=== PATIENT | male | born 1955 | race Caucasian/White ===

== ENCOUNTER 2016-10-04 09:45 | Emergency (ER) | payer SELFPAY ==
[~2016-10-04] VITALS: Ht 180.3 cm; Wt 121.0 kg
[~2016-10-04 09:45] MED LIST: APRESOLINE50 MG PO; ASPIR-LOW81 MG PO; ASPIRIN325 MG PO; BRILINTA90 MG PO; ESSENTIAL ONE1 EACH PO; FENOFIBRATE145 M1 PO; FLEXERIL5 MG PO; HYDROCHLOROTHIA25 MG PO; LISINOPRIL20 MG PO; LOPRESSOR25 MG PO; MOTRIN600 MG PO; NITROSTAT0.4 MG SL; NORVASC5 MG PO; PRAVASTATIN SOD80 MG PO; ZANTAC150 MG PO; [UNRECOGNIZED DRUG - REMARK]
[2016-10-04 11:15] LABS: EOSINOPHIL (%) 1.2 % (0-5); EOSINOPHIL COUNT 0.1 K/uL (0-0.3); HEMATOCRIT 38.6 % (38.0-50.0); IMMATURE GRANULOCYTE (%) 0.5 % (0.0-0.7); IMMATURE GRANULOCYTE COUNT 0.1 K/uL; INSTRUMENT ABS NEUTROPHIL CT 7.8 K/uL; MCH 26.1 PG (29.0-34.0); MCHC 32.4 G/DL (30.0-36.0); MCV 80.6 FL (86-99); MEAN PLAT.VOLUME 9.5 uM^3 (9.0-12.4); MONOCYTE (%) 5.9 % (3-12); MONOCYTE COUNT 0.6 K/uL (0-0.8); NEUTROPHIL (%) 81.4 % (45-76); NEUTROPHIL COUNT 7.8 K/uL (1.8-6.4); PLATELET COUNT 188 K/uL (156-360); RBC DIS.WIDTH-CV 14.5 % (11.8-14.6); RBC DIS.WIDTH-SD 42.1 % (39-53); RED BLOOD COUNT 4.79 M/uL (4.00-5.50); WHITE BLOOD COUNT 9.5 K/uL (4.1-10.2)
[2016-10-04 11:29] LABS: CHLORIDE 105 mEq/L (99-109); POTASSIUM 3.7 mEq/L (3.7-5.4); SODIUM 138 mEq/L (136-147)
[2016-10-04 11:31] LABS: GLUCOSE 116 mg/dL (70-99)
[2016-10-04 11:32] LABS: ANION GAP 10 MEQ/L (2-14)
[2016-10-04 11:34] LABS: GFR ESTIMATE (CALCULATED) > 59 mL/min/
[2016-10-04 11:35] LABS: UREA NITROGEN (BUN) 17 mg/dL (9-23)
[2016-10-04] MEDS ORDERED: LISINOPRIL10 MG PO (13:33)
[2016-10-04] MEDS ORDERED: LEVAQUIN750 MG PO (13:33)
[2016-10-04 13:41] VITALS: BP 179/102
== END 2016-10-04 13:41 | disposition home or self-care (01) ==
LOC: EME 09:45
PROVIDERS: Emergency Medicine
DX: J18.9 Pneumonia, unspecified organism (principal); I10 Essential (primary) hypertension
CPT/HCPCS: 71020; 80048; 85025; 94640; 99281; 99284

== ENCOUNTER → 2017-05-01 | Outpatient (CLI) | payer SELFPAY ==
[~2017-05-01] MED LIST changes: +LEVAQUIN750 MG PO; +LISINOPRIL10 MG PO
== END | disposition home or self-care (01) ==
LOC: RAD 15:52
DX: R91.8 Other nonspecific abnormal finding of lung field (principal)
CPT/HCPCS: 71020

== ENCOUNTER 2017-09-10 18:14 | Inpatient (IN) | payer SELFPAY ==
[~2017-09-10] VITALS: Ht 180.3 cm; Wt 122.3 kg
[2017-09-10 18:44] LABS: HEMATOCRIT 39.6 % (38.0-50.0); HEMOGLOBIN 12.9 G/DL (12.5-16.6); MCH 26.1 PG (29.0-34.0); MCHC 32.6 G/DL (30.0-36.0); MCV 80.2 FL (86-99); PLATELET COUNT 176 K/uL (156-360); RBC DIS.WIDTH-CV 14.9 % (11.8-14.6); RBC DIS.WIDTH-SD 43.2 % (39-53); RED BLOOD COUNT 4.94 M/uL (4.00-5.50); WHITE BLOOD COUNT 6.8 K/uL (4.1-10.2)
[2017-09-10 18:57] LABS: CHLORIDE 108 mEq/L (99-109); POTASSIUM 4.2 mEq/L (3.7-5.4); SODIUM 142 mEq/L (136-147)
[2017-09-10 18:58] LABS: GLUCOSE 135 mg/dL (70-99)
[2017-09-10 19:02] LABS: CREATININE 1.2 mg/dL (0.6-1.3); GFR ESTIMATE (CALCULATED) > 59 mL/min/ (58.99-99999)
[2017-09-10 19:03] LABS: UREA NITROGEN (BUN) 16 mg/dL (9-23)
[2017-09-10 19:05] LABS: TROP-I INTERPRETATION POSITIVE
[2017-09-10 19:07] LABS: TROPONIN-I 0.84 ng/mL (0.0-0.30)
[2017-09-10 19:25] LABS: INTER. NORMALIZED RATIO 1.2
[2017-09-10 19:28] LABS: PTT 32.6 SEC (25-37)
[2017-09-10] MEDS ORDERED: CARDURA2 M1 PO (19:36)
[2017-09-10] MEDS ORDERED: COZAAR100 MG PO (19:38)
[2017-09-10] MEDS ORDERED: PLAVIX75 MG PO (19:39)
[2017-09-10] MEDS ORDERED: LOPRESSOR50 MG PO (19:39)
[2017-09-10] MEDS ORDERED: CRESTOR40 MG PO (19:40)
[2017-09-10] MEDS ORDERED: KLOR-CON 88 MEQ PO (19:41)
[2017-09-10] MEDS ORDERED: MELATONIN3 MG PO (19:43)
[2017-09-10] MEDS ORDERED: HYDROCHLOROTHIA25 MG PO (19:44)
[2017-09-10] MEDS ORDERED: LO-DOSE ASPIRIN81 M2 PO (19:45)
[2017-09-10 22:53] VITALS: BP 204/104
[2017-09-11] VITALS (9 sets, daily range): BP systolic 159–196; BP diastolic 70–91
[2017-09-11 02:11] LABS: BASOPHIL (%) 0.9 % (0-1); BASOPHIL COUNT 0.1 K/uL (0-0.1); EOSINOPHIL (%) 3.5 % (0-5); EOSINOPHIL COUNT 0.2 K/uL (0-0.3); HEMATOCRIT 37.7 % (38.0-50.0); HEMOGLOBIN 12.3 G/DL (12.5-16.6); IMMATURE GRANULOCYTE (%) 0.3 % (0.0-0.7); LYMPHOCYTE (%) 15.6 % (15-42); LYMPHOCYTE COUNT 0.9 K/uL (1.0-2.8); MCH 26.1 PG (29.0-34.0); MCHC 32.6 G/DL (30.0-36.0); MONOCYTE (%) 12.5 % (3-12); MONOCYTE COUNT 0.7 K/uL (0-0.8); NEUTROPHIL (%) 67.2 % (45-76); NEUTROPHIL COUNT 3.9 K/uL (1.8-6.4); PLATELET COUNT 159 K/uL (156-360); RBC DIS.WIDTH-CV 14.9 % (11.8-14.6); RBC DIS.WIDTH-SD 43.4 % (39-53); RED BLOOD COUNT 4.71 M/uL (4.00-5.50); WHITE BLOOD COUNT 5.8 K/uL (4.1-10.2)
[2017-09-11 02:25] LABS: CHLORIDE 106 mEq/L (99-109); SODIUM 141 mEq/L (136-147)
[2017-09-11 02:27] LABS: GLUCOSE 129 mg/dL (70-99)
[2017-09-11 02:30] LABS: CREATININE 1.2 mg/dL (0.6-1.3); GFR ESTIMATE (CALCULATED) > 59 mL/min/ (58.99-99999)
[2017-09-11 02:31] LABS: UREA NITROGEN (BUN) 15 mg/dL (9-23)
[2017-09-11 02:33] LABS: TROP-I INTERPRETATION POSITIVE
[2017-09-11 02:34] LABS: TROPONIN-I 9.01 ng/mL (0.0-0.30)
[2017-09-11 10:30] LABS: TROP-I INTERPRETATION POSITIVE; TROPONIN-I 6.14 ng/mL (0.0-0.30)
[2017-09-12] VITALS (7 sets, daily range): BP systolic 156–174; BP diastolic 73–80
[2017-09-12 05:40] LABS: BASOPHIL (%) 0.8 % (0-1); BASOPHIL COUNT 0.1 K/uL (0-0.1); EOSINOPHIL (%) 2.5 % (0-5); EOSINOPHIL COUNT 0.2 K/uL (0-0.3); HEMATOCRIT 39.8 % (38.0-50.0); HEMOGLOBIN 12.7 G/DL (12.5-16.6); IMMATURE GRANULOCYTE (%) 0.5 % (0.0-0.7); LYMPHOCYTE (%) 12.3 % (15-42); LYMPHOCYTE COUNT 0.8 K/uL (1.0-2.8); MCH 25.9 PG (29.0-34.0); MCHC 31.9 G/DL (30.0-36.0); MCV 81.1 FL (86-99); MONOCYTE COUNT 0.7 K/uL (0-0.8); NEUTROPHIL (%) 72.9 % (45-76); NEUTROPHIL COUNT 4.4 K/uL (1.8-6.4); PLATELET COUNT 171 K/uL (156-360); RBC DIS.WIDTH-CV 15.4 % (11.8-14.6); RBC DIS.WIDTH-SD 45.1 % (39-53); RED BLOOD COUNT 4.91 M/uL (4.00-5.50); WHITE BLOOD COUNT 6.1 K/uL (4.1-10.2)
[2017-09-12 06:11] LABS: CHLORIDE 104 MEQ/L (99-109); CREATININE 1.2 MG/DL (0.6-1.3); GFR ESTIMATE (CALCULATED) > 59 mL/min/ (58.99-99999); GLUCOSE 103 mg/dL (70-99); SODIUM 138 MEQ/L (136-147); UREA NITROGEN (BUN) 15 mg/dL (9-23)
[2017-09-12 13:44] LABS: HEMOGLOBIN A1c (GLYCOHEMOGLOB) 5.6 % (Below 5.7)
[2017-09-13 04:02] VITALS: BP 153/72
[2017-09-13 05:05] LABS: BASOPHIL (%) 0.8 % (0-1); BASOPHIL COUNT 0.1 K/uL (0-0.1); EOSINOPHIL (%) 4.8 % (0-5); EOSINOPHIL COUNT 0.3 K/uL (0-0.3); HEMATOCRIT 41.1 % (38.0-50.0); HEMOGLOBIN 13.2 G/DL (12.5-16.6); IMMATURE GRANULOCYTE (%) 0.3 % (0.0-0.7); LYMPHOCYTE (%) 17.2 % (15-42); MCH 25.7 PG (29.0-34.0); MCHC 32.1 G/DL (30.0-36.0); MONOCYTE (%) 13.8 % (3-12); MONOCYTE COUNT 0.8 K/uL (0-0.8); NEUTROPHIL (%) 63.1 % (45-76); NEUTROPHIL COUNT 3.8 K/uL (1.8-6.4); PLATELET COUNT 172 K/uL (156-360); RBC DIS.WIDTH-CV 15.1 % (11.8-14.6); RBC DIS.WIDTH-SD 43.9 % (39-53); RED BLOOD COUNT 5.14 M/uL (4.00-5.50)
[2017-09-13 07:03] VITALS: BP 178/86
[2017-09-13 11:18] VITALS: BP 149/70
[2017-09-13] MEDS ORDERED: AMLODIPINE BESY10 MG PO (11:37)
[2017-09-13] MEDS ORDERED: HYDRALAZINE HCL50 MG PO (11:37)
== END 2017-09-13 13:15 | disposition home or self-care (01) | DRG 281 ==
LOC: EME 18:14 → 4EAST 21:04 → EDOF 21:04 → ENRESERV 21:08 → 4EAST 22:44
PROVIDERS: Hospitalist
DX: I21.4 Non-ST elevation (NSTEMI) myocardial infarction (principal); I16.1 Hypertensive emergency; I10 Essential (primary) hypertension; I25.10 Atherosclerotic heart disease of native coronary artery without angina pectoris; Z91.14 Patient's other noncompliance with medication regimen; Z91.19 Patient's noncompliance with other medical treatment and regimen; I25.2 Old myocardial infarction; E78.5 Hyperlipidemia, unspecified; K21.9 Gastro-esophageal reflux disease without esophagitis; R00.1 Bradycardia, unspecified; R42 Dizziness and giddiness; E66.01 Morbid (severe) obesity due to excess calories; Z68.37 Body mass index [BMI] 37.0-37.9, adult; Z80.1 Family history of malignant neoplasm of trachea, bronchus and lung; Z85.820 Personal history of malignant melanoma of skin; Z82.3 Family history of stroke; Z82.49 Family history of ischemic heart disease and other diseases of the circulatory system; Z83.3 Family history of diabetes mellitus; Z95.5 Presence of coronary angioplasty implant and graft
CPT/HCPCS: 71046; 71275; 80048; 83036; 84484; 85025; 85027; 85610; 85730; 93005; 93306; 99281; 99285; C1769; C1887; J0360; J1644; J2250; J7040

== ENCOUNTER → 2017-10-01 | Outpatient (CLI) | payer SELFPAY ==
[~2017-10-01] MED LIST changes: +AMLODIPINE BESY10 MG PO; +CARDURA2 M1 PO; +COZAAR100 MG PO; +CRESTOR40 MG PO; +HYDRALAZINE HCL50 MG PO; +KLOR-CON 88 MEQ PO; +LO-DOSE ASPIRIN81 M2 PO; +LOPRESSOR50 MG PO; +MELATONIN3 MG PO; +PLAVIX75 MG PO
== END | disposition home or self-care (01) ==
LOC: RAD 12:36
DX: I65.23 Occlusion and stenosis of bilateral carotid arteries (principal)
CPT/HCPCS: 93880

== ENCOUNTER → 2017-11-07 | Outpatient (CLI) | payer SELFPAY | END | disposition home or self-care (01) | LOC: RAD 08:51 | DX: R31.9 Hematuria, unspecified (principal) | CPT/HCPCS: 76770 ==